=== PATIENT | female | born 1950 | race Caucasian/White ===

== ENCOUNTER 2019-03-18 23:02 | Inpatient (IN) ==
[2019-03-18 23:40] LABS: URINE SOURCE CLEAN CATCH
[2019-03-18 23:46] LABS: BILIRUBIN URINE NEGATIVE (NEGATIVE); BLOOD URINE SMALL (NEGATIVE); COLOR YELLOW; GLUCOSE URINE >1000 mg/dL (NEGATIVE); KETONE URINE 20 mg/dL (NEGATIVE); LEUKOCYTES URINE SMALL (NEGATIVE); NITRITE URINE POSITIVE (NEGATIVE); PH URINE 5.5; PROTEIN URINE 50 mg/dL (NEGATIVE); SP GRAVITY URINE 1.026; TURBIDITY URINE CLEAR (CLEAR); UROBILINOGEN URINE NORMAL (NORMAL)
[2019-03-18 23:47] LABS: UR EPITHELIAL CELLS <10 /HPF (<10); URINE BACTERIA 4+ /HPF; URINE RBC <10 /HPF (<10); URINE WBC TNTC /HPF (<10)
[2019-03-18] MEDS ORDERED: NS 1,000 ML IV ONE (23:59)
[2019-03-19] MEDS ORDERED: ZOFRAN IV ONE ×2 (00:03→00:06)
--- NOTE | 2019-03-19 00:06 | PROVIDER DOCUMENTATION ---
HPI-Female /OB/Breast - General Chief Complaint: Flank Pain Stated Complaint: VOMITING, STOMACH AND SIDE PAIN Time Seen by Provider: 03/18/19 23:32 - History of Present Illness-Female /OB Nature of Presenting Problem: 68 YOF PRESENTS WITH C/O L FLANK PAIN RADIATING TO THE LOWER LEFT QUADRANT AND SUPRAPUBIC THAT BEGAN ON WEDNESDAY. SHE HAS HAD N/V. DENIES SOB, CP, DIARRHEA. SHE HAS NOT CHECKED A TEMP AT HOME. Does patient report she is ?: No Location of complaint: reports: left flank Radiation: reports: LLQ, suprapubic Quality of Pain: reports: aching, sharp Severity in ED: reports: moderate Onset/Duration: reports: 24 hours ago Timing: reports: still present, getting worse Context/Activities at Onset: reports: none Vaginal Symptoms: reports: no symptoms Vaginal Bleeding Amount: None Urinary Symptoms: reports: low back pain Related Symptoms: reports: no symptoms Leakage of Fluid: none Sexual intercourse history: reports: Single Partner Contraception: reports: none Modifying Factors: improves with: nothing Associated Symptoms: reports: denies symptoms Similar Symptoms Previously?: No Recently seen or treated by another doctor?: No Review of Systems - Adult - REVIEW OF SYSTEMS - ADULT Constitutional: reports: no symptoms reported. denies: see HPI, chills, fever, fatique, night sweats, weight gain, weight loss, other Eyes: reports: no symptoms reported. denies: see HPI, discharge, dry eyes, decr eased vision, blurred vision, double vision, eye pain, redness, other Ears, Nose, Mouth & Throat: reports: no symptoms reported. denies: see HPI, ear discharge, ear pain, hearing loss, tinnitus, epistaxis, sinus problem, nose pain, loose teeth, mouth/dental pain, mouth swelling, hoarseness, throat pain, throat swelling, other Cardiovascular: reports: no symptoms reported. denies: see HPI, chest pain, edema, heart murmur, irregular heart rate, orthopnea, palpitations, poor circulation, PND, syncope, other Respiratory: reports: no symptoms reported. denies: see HPI, chronic cough, cough, dyspnea on exertion, excessive sputum production, hemoptysis, pleurisy, shortness of breath, wheezing, other Gastrointestinal: reports: abdominal pain, nausea, vomiting. denies: no symptoms reported, see HPI, hematemesis, constipation, diarrhea, difficulty swallowing, frequent heartburn, poor appetite, rectal bleeding, other Genitourinary: reports: see HPI, flank pain. denies: no symptoms reported, dysuria, discharge, frequency, frequent UTI's, hematuria, hesitency, incontinence, urinary retention, urgency, other Musculoskeletal: reports: no symptoms reported. denies: see HPI, bone pain, back pain, frequent leg cramps, joint pain, joint swelling, muscle aches, muscle weakness, neck pain, other Integumentary: reports: no symptoms reported. denies: see HPI, hives, hair loss, itching, mole changes, nail changes, rash, skin sores/ulcer, skin thickening, other Neurological: reports: no symptoms reported. denies: see HPI, ataxia, dizziness/vertigo, headache/migraines, loss of balance, numbness, paresthesia, seizure, slurred speech, syncope, tremors, other Psychiatric: reports: no symptoms reported. denies: see HPI, anxiety, anti- depressant use, alcohol/drug dependence, depression, emotional problems, insomnia, panic attacks, suicidal thoughts, other Endocrine: reports: no symptoms reported. denies: see HPI, change in skin pigment, excessive sweating, goiter, cold intolerance, heat intolerance, increased hunger, increased thirst, polyuria, other Hematologic/Lymphatic: reports: no symptoms reported. denies: see HPI, blood clots, easy bruising, low blood count, lymphedema, prolonged bleeding, swollen lymph nodes, transfusions, other Allergic/Immunologic: reports: no symptoms reported. denies: see HPI, allergic reactions, allergic rhinitis, asthma, eczema, food allergy, frequent infections, hay fever, hives, positive PPD, urticaria, other Past History - Adult - PAST MEDICAL HISTORY-ADULT Review of Records: reports: Nursing Assessment Review, Social history reviewed & non-contributory. Physical Exam-General - PHYSICAL EXAM-ADULT Initial Vital Signs Reviewed: Yes - CONSTITUTIONAL General Appearance: alert - EYES Eyes: PERRL/EOMI - HEAD, EARS, NOSE, MOUTH & THROAT HENMT: normocephalic/atraumatic, moist mucous membranes, normal ENT inspection - NECK Neck: non-tender, full range of motion, supple - RESPIRATORY Respiratory: chest non-tender, lungs clear, normal breath sounds, no pleuratic chest pain, no respiratory distress - CARDIOVASCULAR Cardiovascular: normal peripheral pulses, regular rate, rhythm - GASTROINTESTINAL (ABDOMEN) Abdominal Exam: normal bowel sounds, non tender, soft - LYMPHATIC Lymphatic: no adenopathy - MUSCULOSKELETAL Back Exam: CVA tenderness (L SIDE). negative: no CVA tenderness Extremity: normal range of motion, non-tender, normal gait - SKIN Integumentary: normal color, normal turgor, warm/dry - NEUROLOGIC Neurologic: grossly normal - PSYCHIATRIC Psych/Mental Status: normal mood/affect, oriented x 3 Progress - PLAN OF CARE/RESULTS Progress/Plan/Lab Results: Vital Signs - 8 hr 03/18/19 23:11 Temperature 99.0 F Pulse Rate 125 H Respiratory Rate 18 Blood Pressure 111/70 O2 Sat by Pulse Oximetry 94 L Laboratory Results - last 24 hr 03/18/19 23:35 Urine Source CLEAN CATCH Urine Color YELLOW Urine Turbidity CLEAR Urine pH 5.5 Ur Specific Solomon 1.026 Urine Protein 50 A Ur Glucose (Stick) >1000 A Ur Ketones (Stick) 20 A Urine Blood SMALL A Urine Nitrite POSITIVE A Urine Bilirubin NEGATIVE Urobilinogen Dipstick NORMAL Urine Leukocytes SMALL A Urine WBC (Auto) TNTC A Urine RBC (Auto) <10 U Epithel Cells (Auto) <10 Urine Bacteria (Auto) 4+ Orders Category Date Time Status Saline Loc NOW Care 03/18/19 23:38 Active CBC WITH ELECTRONIC DIFF [HEME] Stat Lab 03/19/19 00:03 Ordered COMPREHENSIVE METABOLIC PANEL [CHEM] Stat Lab 03/19/19 00:03 Ordered LIPASE [CHEM] Stat Lab 03/19/19 00:03 Ordered URINALYSIS W/POSS RFLX CULT [URINALYSIS] Stat Lab 03/18/19 23:35 Completed 0.9% Sodium Chloride Inj [Ns] 1,000 ml Med 03/18/19 23:59 Active IV 999 mls/hr Ondansetron [Zofran] Med 03/19/19 00:03 Discontinued 4 mg IV NOW ONE Ondansetron [Zofran] Med 03/19/19 00:06 Discontinued 4 mg IV NOW ONE Result Diagrams: 03/19/19 00:03 03/19/19 00:03 - CHANGE OF SHIFT REPORT (ED Provider) 1 Report Given and Care Transferred to:: DR RUSSELL Time of Transfer: 00:07 Items Pending: Labs (DISPO, ABX, IVF, NAUSEA CONTROL) Departure - Departure Date of Disposition Decision: 03/19/19 Time of Disposition Decision: 01:14 DIAGNOSIS: Pyelonephritis, WANDY (acute kidney injury) Disposition: ADMITTED INPATIENT 09 Certified Medical Emergency: Emergent Condition: Stable Referrals and Follow-Ups: Juan Fofana MD [Primary Care Provider] - - Critical Care Note This patient required my direct & personal management of CC.: No Attestation - Physician/ ELISHA Attestation Patient care was provided by Advanced Practice Provider:: No The physician spent face to face time with patient:: Yes Advanced Practice Provider documentation review:: Supervising physician onsite and consulted in the evaluation and care of this patient. The physician did have a face to face encounter with the patient.
[2019-03-19] MEDS ORDERED: TORADOL IV ONE ×2 (00:13→16:38)
[2019-03-19 00:18] LABS: BASO# 0.03 X1000 (0.0-0.2); BASO% 0.2 % (0.0-0.8); EOS# 0.04 X1000 (0.0-0.7); EOS% 0.2 % (0.0-10.0); HEMATOCRIT 38.8 % (37.0-47.0); HEMOGLOBIN 12.8 g/dL (12.0-16.0); IMM GRAN# 0.06 X1000 (0.0-0.04); IMM GRAN% 0.3 % (0.0-0.5); LYMPH% 5.1 % (20.5-51.1); MCH 27.8 PG (27-31); MCV 84.3 FL (81-99); MONO# 0.85 X1000 (0.11-0.59); MONO% 4.8 % (1.7-9.3); MPV 10.3 FL (7.4-10.4); NEUT# 15.76 X1000 (1.4-6.5); NEUT% 89.4 % (42.2-75.2); PLT 282 X1000 (130-400); RDW 13.8 % (11.5-14.5); WBC 17.64 X1000 (4.8-10.8)
[2019-03-19] MEDS ORDERED: ROCEPHIN 1 GM in NS 50 ML IV ONE (00:20)
[2019-03-19 00:36] LABS: ALB/GLOB RATIO 1.3; CALCIUM 9.9 mg/dL (8.8-10.2); CREATININE 1.5 mg/dL (0.5-0.9); POTASSIUM 3.8 mmol/L (3.5-5.1); TOTAL BILIRUBIN 0.51 mg/dL (0.20-1.00)
[2019-03-19] MEDS: NORCO-5 PO PRN ×2 (04:15→10:53)
[2019-03-19] MEDS: NS 1,000 ML IV SCH ×2 (04:15→15:56)
--- NOTE | 2019-03-19 04:26 | HISTORY AND PHYSICAL ---
PRIMARY CARE PHYSICIAN: Dr. Juan Fofana. CHIEF COMPLAINT: Left flank pain. HISTORY OF PRESENTING ILLNESS: A 68-year-old female with a history of diabetes mellitus type 2, hypothyroidism, GERD, hyperlipidemia and depression, who presented to emergency department with 2 days history of having worsening left flank pain. She states that she was having nausea, vomiting and did not feel well. The patient had come to the emergency department where she was evaluated and it was suspected possibly she had pyelonephritis clinically. Due to her presenting symptoms, she will require admission for further management. At time of my examination, patient denied any headache, fever, chills, chest pain, shortness of breath, hemoptysis or weight changes, but complained of left flank pain and nausea, vomiting. PAST MEDICAL HISTORY: Include diabetes mellitus type 2, hypothyroidism, GERD, hyperlipidemia and depression. PAST SURGICAL HISTORY: Right shoulder surgery, left knee surgery, right foot surgery, hysterectomy, back surgery, cholecystectomy. ALLERGIES: No known drug allergies. CURRENT MEDICATIONS: Insulin glargine 15 units subcutaneous at bedtime, metformin 1000 mg p.o. b.i.d., Lexapro 10 mg p.o. daily, fenofibrate 160 mg p.o. daily, levothyroxine 50 mcg p.o. daily, Singular 10 mg p.o. daily, pantoprazole 20 mg p.o. daily. SOCIAL HISTORY: No history of smoking, alcohol or illicit drug use. FAMILY HISTORY: Positive coronary artery disease in father. REVIEW OF SYSTEMS: Fourteen point review of systems as listed in HPI. Other systems negative. PHYSICAL EXAMINATION: GENERAL: Cooperative, friendly female. She is resting more comfortably now. VITAL SIGNS: Temperature 98.2 degrees, pulse 98, respiration 18, blood pressure 121/66. HEENT: Atraumatic, normocephalic. Extraocular movements intact. PERRLA. NECK: Supple. CHEST: Clear to auscultation. CARDIOVASCULAR: Regular rate and rhythm. ABDOMEN: Soft, positive bowel sounds. BACK: There is left flank tenderness. GENITOURINARY: No bladder distention. SKIN: Warm. NEUROLOGIC: Nonfocal. LABORATORIES AND STUDIES: WBC 17.64, hemoglobin 12.8, hematocrit 38.8, platelets 282,000. Sodium 135, potassium 3.8, chloride 97, CO2 is 18, BUN is 27, creatinine is 1.5, glucose 283. ASSESSMENT: This is a 68-year-old female with a history of diabetes mellitus type 2, hypothyroidism, gastroesophageal reflux disease and hyperlipidemia, who presented to the emergency department with several days history of having left flank pain. She was evaluated in the emergency department. Clinically, it seemed that she had pyelonephritis. Subsequently, she will require admission for further management. 1. Left flank pain, suspected pyelonephritis. 2. Urinary tract infection. 3. Acute kidney injury. 4. Diabetes mellitus type 2. PLAN: 1. We will admit patient to medical floor with telemetry. 2. We will check blood cultures and urine cultures. Start patient on IV antibiotics. 3. We will continue to monitor her renal function. Continue with IV fluid hydration. 4. We will monitor blood glucose and put patient on sliding scale insulin regimen. 5. Put patient on DVT prophylaxis with SCD. 6. We will continue to follow, and reassess and make further recommendation based on patient's clinical course. cc: Jayden Munoz MD
[2019-03-19] MEDS: PROTONIX PO SCH (06:20)
[2019-03-19] MEDS: SYNTHROID PO SCH (06:20)
[2019-03-19] MEDS: HUMULIN R SUBQ SCH ×4 (07:02→21:53)
[2019-03-19] MEDS: SINGULAIR PO SCH (10:53)
[2019-03-19] MEDS: LEXAPRO PO SCH (10:53)
[2019-03-19] MEDS: LOFIBRA PO SCH (10:53)
[2019-03-19] MEDS: ZOFRAN IV PRN (15:56)
--- NOTE | 2019-03-19 17:10 | PROGRESS NOTE ---
DATE: 03/19/2019 SUBJECTIVE: Patient has no major complaints. OBJECTIVE: Blood pressure 138/68, heart rate 110, respiratory rate 20, temperature 98.7 degrees, 95% on room air. The patient is having a lot of headache pain and pain in her side. Cardiovascular: Regular rate and rhythm. Pulmonary: Bilateral breath sounds. Clear to auscultation. GI: Soft, nontender, nondistended. Bowel sounds are positive. LABORATORY DATA: No big changes. PROBLEM LIST: Pyelonephritis at least presumably so we will continue antibiotics. I am going to do a stone search just because of the nature of her pain. It is kind of in her left lower quadrant and we will continue antibiotics and follow closely. Urine, blood cultures are pending. cc: Boni Peter MD
[2019-03-19] MEDS: MORPHINE IV PRN ×2 (17:41→20:48)
--- NOTE | 2019-03-19 19:20 | Diag Imaging Result Doc PS360 ---
EXAM: CT RENAL STONE SEARCH 03/19/2019 HISTORY: ashlee TECHNIQUE: This exam was performed using automated exposure control, adjustment of mA or kV according to patient size, and/or use of iterative reconstruction technique. COMMENT: There is bilateral lower lobe atelectasis worse on the left than the right. There bilateral pleural effusions, left more than right. The liver is markedly hypodense suggesting fatty change. The spleen and adrenal glands are not enlarged. There is some fullness in the right collecting system and there are several small stones none of which exceed 3 mm in size. There is marked hydronephrosis on the left with perinephric stranding. The left ureter is also markedly distended. There is a stone at the level of the sacroiliac joint in the ureter on the left measuring in excess of 8 mm in diameter. There is free fluid in the cul-de-sac. The urinary bladder is not distended. There is no evidence of bowel obstruction. There is no evidence of appendicitis. There has been previous cholecystectomy. There are postsurgical changes in the lower lumbar spine. No acute bony abnormalities are present. IMPRESSION: High-grade hydronephrosis on the left due to distal ureteral stone. Right nephrolithiasis. Mild right hydronephrosis. Hepatic steatosis. Bibasilar atelectasis and pleural effusions. Electronically signed by Ye Gomez 03/19/2019 7:17 PM
[2019-03-20] MEDS ORDERED: ROCEPHIN 1 GM in NS 50 ML IV SCH (01:00)
[2019-03-20] MEDS: NS 1,000 ML IV SCH ×2 (01:19→17:10)
[2019-03-20] MEDS: FIORICET PO PRN ×2 (01:30→20:54)
[2019-03-20] MEDS: PATIENT'S OWN MED SUBQ SCH ×2 (01:38→20:57)
[2019-03-20] MEDS: NORCO-5 PO PRN (04:57)
[2019-03-20] MEDS: PROTONIX PO SCH (06:32)
[2019-03-20] MEDS: SYNTHROID PO SCH (06:32)
[2019-03-20] MEDS: HUMULIN R SUBQ SCH ×3 (06:37→20:55)
[2019-03-20 06:44] LABS: CALCIUM 8.9 mg/dL (8.8-10.2); CREATININE 1.5 mg/dL (0.5-0.9); POTASSIUM 3.7 mmol/L (3.5-5.1)
[2019-03-20 06:48] LABS: BASO# 0.01 X1000 (0.0-0.2); BASO% 0.1 % (0.0-0.8); EOS# 0.23 X1000 (0.0-0.7); EOS% 2.6 % (0.0-10.0); HEMATOCRIT 30.8 % (37.0-47.0); IMM GRAN# 0.03 X1000 (0.0-0.04); IMM GRAN% 0.3 % (0.0-0.5); LYMPH# 0.87 X1000 (1.2-3.4); LYMPH% 9.7 % (20.5-51.1); MCH 27.9 PG (27-31); MCHC 32.5 g/dL (33-37); MCV 85.8 FL (81-99); MONO# 0.43 X1000 (0.11-0.59); MONO% 4.8 % (1.7-9.3); MPV 10.4 FL (7.4-10.4); NEUT# 7.42 X1000 (1.4-6.5); NEUT% 82.5 % (42.2-75.2); PLT 208 X1000 (130-400); RBC 3.59 XMIL (4.2-5.4); RDW 13.7 % (11.5-14.5); WBC 8.99 X1000 (4.8-10.8)
[2019-03-20] MEDS: MORPHINE IV PRN ×2 (09:20→15:27)
[2019-03-20] MEDS: LOFIBRA PO SCH (09:21)
[2019-03-20] MEDS: ALLEGRA PO SCH (09:21)
[2019-03-20] MEDS: LEXAPRO PO SCH (09:21)
[2019-03-20] MEDS: SINGULAIR PO SCH (09:23)
[2019-03-20] MEDS ORDERED: OFIRMEV 1000 MG/ISOTONIC SOLN 1,000 MG/100 ML BOTTLE IV PRN (16:23)
[2019-03-20] MEDS ORDERED: NS 1,000 ML IV SCH (16:45)
[2019-03-20] MEDS: DILAUDID IV PRN ×2 (17:10→20:55)
[2019-03-20] MEDS: ZOFRAN IV PRN ×2 (17:10→20:55)
[2019-03-20] MEDS: ROCEPHIN 1 GM in NS 50 ML IV SCH (17:23)
--- NOTE | 2019-03-20 19:18 | PROGRESS NOTE ---
DATE: 03/20/2019 SUBJECTIVE: Patient has no major complaints. She just does not feel well. OBJECTIVE: Vital Signs: Heart rate is 90s, respiratory rate 18, blood pressure 135/54, saturations 92% on room air. Cardiovascular: Regular rate and rhythm. Pulmonary: Bilateral breath sounds. Gastrointestinal: Abdomen had soft, nontender, nondistended. Bowel sounds are positive. LABORATORY DATA: White count is down to 8.9, hemoglobin and hematocrit 10 and 30, platelets 208,000. BUN and creatinine 24 and 1.5. Sugar 195. Micro gram-negative rods in the urine. PROBLEM LIST: 1. Impacted stone in her left ureter with hydronephrosis. She will need JJ stent placement. I have discussed with Dr. Jo. At this point, it will most likely be done tomorrow and he will come and evaluate her in the meantime. We will continue IV fluids, pain control. 2. Pyelonephritis, likely secondary to impacted stone. We will continue empiric antibiotics. I am going to bump up her Rocephin to q 12 just because I want to make sure she is adequately covered. It is most likely a Escherichia coli type back bacteria. 3. Diabetes. We will continue to monitor. Continue sliding scale and follow closely. We will also check an A1c. DISPOSITION: Pending her clinical status. Hopefully, once we can get stent placed, she will start to improve and go home in the next 24 hours pending her clinical status. cc: Boni Peter MD
[2019-03-21] MEDS: NS 1,000 ML IV SCH ×3 (00:43→19:31)
[2019-03-21] MEDS: ZOFRAN IV PRN ×3 (00:44→09:53)
[2019-03-21] MEDS: DILAUDID IV PRN ×5 (00:44→20:40)
[2019-03-21] MEDS: ROCEPHIN 1 GM in NS 50 ML IV SCH ×2 (05:19→17:27)
[2019-03-21] MEDS: SYNTHROID PO SCH ×2 (05:19→06:19)
[2019-03-21] MEDS: PROTONIX PO SCH ×2 (05:20→06:19)
[2019-03-21 06:05] LABS: BASO# 0.02 X1000 (0.0-0.2); BASO% 0.2 % (0.0-0.8); EOS# 0.27 X1000 (0.0-0.7); EOS% 3.2 % (0.0-10.0); HEMATOCRIT 32.4 % (37.0-47.0); HEMOGLOBIN 10.7 g/dL (12.0-16.0); IMM GRAN% 1.2 % (0.0-0.5); LYMPH# 0.87 X1000 (1.2-3.4); LYMPH% 10.3 % (20.5-51.1); MCH 27.9 PG (27-31); MCV 84.6 FL (81-99); MONO# 0.79 X1000 (0.11-0.59); MONO% 9.4 % (1.7-9.3); MPV 10.5 FL (7.4-10.4); NEUT# 6.38 X1000 (1.4-6.5); NEUT% 75.7 % (42.2-75.2); PLT 226 X1000 (130-400); RBC 3.83 XMIL (4.2-5.4); RDW 13.6 % (11.5-14.5); WBC 8.43 X1000 (4.8-10.8)
[2019-03-21 06:11] LABS: CREATININE 1.4 mg/dL (0.5-0.9); POTASSIUM 3.6 mmol/L (3.5-5.1)
[2019-03-21 06:12] LABS: CALCIUM 9.3 mg/dL (8.8-10.2)
[2019-03-21 06:29] LABS: HEMOGLOBIN A1C 9.5 % (4.8-6.0)
[2019-03-21] MEDS: HUMULIN R SUBQ SCH ×5 (08:00→20:40)
--- NOTE | 2019-03-21 08:24 | CONSULTATION ---
DATE OF CONSULTATION: 03/20/2019 CONSULTING PHYSICIAN: Dr. Boni Peter with the hospitalist service. REASON FOR CONSULTATION: Consultation for obstructing left ureteral stone, hydronephrosis, pyelonephritis. HISTORY OF PRESENT ILLNESS: A 68-year-old female without previous history of urolithiasis who reports developing a 1-week history of back pain. Three days ago, the pain started radiating into her left flank and left lower abdomen. She developed associated nausea and vomiting. As the pain progressed in severity, she presented to the emergency room. There, she was found to have leukocytosis. She underwent CT of abdomen and pelvis renal stone search on 03/19/2019 which revealed several right renal stones and an 8 mm left distal ureteral stone with significant hydronephrosis. The patient was admitted, hydrated, and given pain medications, antiemetics, and antibiotics. She continues to have significant pain. PAST MEDICAL HISTORY: Diabetes mellitus, hyperlipidemia, hypothyroidism, GERD, depression. PAST SURGICAL HISTORY: Cholecystectomy, hysterectomy, back surgery, shoulder surgery, knee surgery, and foot surgery. ALLERGIES: No known drug allergies. HOME MEDICATIONS: Levothyroxine, pantoprazole, Singulair, fenofibrate, Lexapro, metformin, insulin glargine. SOCIAL HISTORY: She denies tobacco, alcohol, or illicit drug use. FAMILY HISTORY: Negative for malignancies. Negative for urolithiasis. Positive for coronary artery disease. REVIEW OF SYSTEMS: Reviewed and 12 systems negative except as in the HPI. PHYSICAL EXAMINATION: T 100.8 degrees, P 97, BP 135/54. General: Pleasant female in no acute distress. HEENT: Normocephalic, atraumatic. Cardiovascular: Regular rhythm. Pulmonary: Bilateral breath sounds. Abdomen: Protuberant, nontender to palpation. No involuntary guarding. No peritoneal signs. Back: Positive for left CVA tenderness. : Bladder is nontender to palpation. Lymphatic: No groin lymphadenopathy. No axillary lymphadenopathy. Dermatologic: No obvious skin rashes. Neurologic: Alert and oriented x3. Psychiatric: Appropriate mood and affect. PERTINENT LABORATORY DATA: White cell count is 9000 down from 17,000, hematocrit is 31. Creatinine is 1.5. PERTINENT IMAGING: CT abdomen and pelvis renal stone search on 03/19/2019 as per HPI. ASSESSMENT: A 68-year-old female with left obstructing distal ureteral stone with significant associated hydroureteronephrosis, severe left flank pain, nausea, and vomiting. I have discussed with the patient that given her stone size, she is unlikely to pass it. We discussed that she would benefit from cystoscopy with left ureteroscopy, laser lithotripsy, stone basket extraction, placement of left ureteral stent. We discussed the risks of the procedure including, but not limited to, bleeding, infection, injury to the bladder, injury to the ureter, inability to retrieve the stone, long-term complications such as ureteral stricture, and the need for a ureteral stent afterwards. She voiced understanding and wants to proceed. PLAN: 1. NPO after midnight. 2. To operating room on 03/21/2019 for cystoscopy, left ureteroscopy, laser lithotripsy, stone basket extraction, and possible left ureteral stent. Thank you for the consultation. cc: Greyson Jo MD
[2019-03-21] MEDS: SINGULAIR PO SCH (09:00)
[2019-03-21] MEDS: LEXAPRO PO SCH (09:01)
[2019-03-21] MEDS: LOFIBRA PO SCH (09:01)
[2019-03-21] MEDS: ALLEGRA PO SCH (09:01)
[2019-03-21] MEDS ORDERED: DIPRIVAN 1% ONE (11:57)
[2019-03-21] MEDS ORDERED: DECADRON ONE (11:58)
[2019-03-21] MEDS ORDERED: ZOFRAN ONE (11:58)
[2019-03-21] MEDS ORDERED: XYLOCAINE-MPF 2% ONE (11:58)
[2019-03-21] MEDS ORDERED: FENTANYL ONE (12:44)
[2019-03-21] MEDS ORDERED: INSULIN PEN NEEDLES ONE (14:03)
--- NOTE | 2019-03-21 14:13 | Diag Imaging Result Doc PS360 ---
FLUROSCOPY CYSTO - 03/21/2019 INDICATION: LT URETERAL STONE, UTI, HEMATURIA, LT LASER STONE BASKET, STENT TECHNIQUE: The exam was performed by the patient's urologist. Total fluoroscopy time was 10 seconds. Nine images were obtained. COMPARISON: CT from 03/19/2019 FINDINGS: A wire and instrument were placed in the left ureter. The wire was advanced to the renal collecting system. A left nephroureteral stent was placed in good position. IMPRESSION: No complication. Electronically signed by Feliberto Palmer 03/21/2019 2:10 PM
[2019-03-21] MEDS ORDERED: UROGESIC-BLUE PO PRN (15:14)
--- NOTE | 2019-03-21 18:29 | PROGRESS NOTE ---
DATE: 03/21/2019 SUBJECTIVE: The patient has no major complaints. She feels a lot better. She looks a lot better. OBJECTIVE: vital signs: Blood pressure is 138/68, heart rate 91, respiratory rate 18, temperature was 98.3 degrees. Cardiovascular: Regular rate and rhythm. Pulmonary: Bilateral breath sounds. Clear to auscultation. Gastrointestinal: Soft, nontender, nondistended. Bowel sounds are positive. Extremities: No clubbing or cyanosis. LABORATORY DATA: White count is down to 8, hemoglobin and hematocrit 10 and 32, platelets 226,000. Creatinine 1.4. A1c is 9.5. PROBLEM LIST: 1. Impacted stone with hydronephrosis and ureterolithiasis. Dr. Jo. I greatly appreciate his intervention. She has had a stent now and is doing a lot better and we will continue to follow. 2. Pyelonephritis, left kidney. Likely from urinary obstruction. We will continue antibiotics. Positive culture for Klebsiella pneumoniae, but it is sensitive to cefazolin which allows us to use Keflex as an outpatient. 3. Diabetes. Continue sliding scale insulin. Check A1c which is elevated. Blood sugars are overall stable. We will continue her regular medications, but right now she is not on anything. She is supposed to be on metformin and she is supposed to be on glargine and exenatide, so we may be able to start that back. I am not quite sure why that was not started back. We need to start that back. We have ordered it. I am going to start her Lantus. She is using her own medication, so will see how her numbers look. Possible discharge tomorrow I think if she is afebrile for 24 hours. She had a little bit of temperature yesterday. cc: Boni Peter MD
[2019-03-21] MEDS: PERIDEX MT SCH (20:39)
[2019-03-21] MEDS: PATIENT'S OWN MED SUBQ SCH (20:41)
[2019-03-22] MEDS: NORCO-5 PO PRN ×3 (00:31→14:22)
[2019-03-22] MEDS: NS 1,000 ML IV SCH ×3 (04:30→18:23)
[2019-03-22] MEDS: PROTONIX PO SCH (06:07)
[2019-03-22] MEDS: ROCEPHIN 1 GM in NS 50 ML IV SCH ×2 (06:07→17:17)
[2019-03-22] MEDS: SYNTHROID PO SCH (06:08)
[2019-03-22 06:30] LABS: BASO# 0.02 X1000 (0.0-0.2); BASO% 0.2 % (0.0-0.8); EOS# 0.12 X1000 (0.0-0.7); EOS% 1.4 % (0.0-10.0); HEMATOCRIT 30.9 % (37.0-47.0); HEMOGLOBIN 10.2 g/dL (12.0-16.0); IMM GRAN# 0.28 X1000 (0.0-0.04); IMM GRAN% 3.4 % (0.0-0.5); LYMPH# 1.32 X1000 (1.2-3.4); LYMPH% 15.9 % (20.5-51.1); MCH 27.6 PG (27-31); MCV 83.7 FL (81-99); MONO# 0.76 X1000 (0.11-0.59); MONO% 9.1 % (1.7-9.3); MPV 10.3 FL (7.4-10.4); NEUT# 5.82 X1000 (1.4-6.5); PLT 256 X1000 (130-400); RBC 3.69 XMIL (4.2-5.4); RDW 13.8 % (11.5-14.5); WBC 8.32 X1000 (4.8-10.8)
[2019-03-22] MEDS: HUMULIN R SUBQ SCH ×3 (06:38→17:17)
[2019-03-22 06:49] LABS: CALCIUM 9.4 mg/dL (8.8-10.2); CREATININE 1.2 mg/dL (0.5-0.9); POTASSIUM 3.2 mmol/L (3.5-5.1)
--- NOTE | 2019-03-22 10:07 | PROGRESS NOTE ---
DATE: 03/22/2019 SUBJECTIVE: Ms. Palma states that she is feeling much better in terms of pain. Her nausea has resolved. She denied any fevers overnight. She does report diarrhea, which she is attributing to the antibiotic. PHYSICAL EXAMINATION: T 97.8 degrees, P 77, BP 127/60. Her urine output was recorded in the amount of 2450 mL. General: No acute distress. HEENT: Normocephalic, atraumatic. Abdomen: Nontender, nondistended. : Bladder nontender by palpation. PERTINENT LABORATORY DATA: White cell count is 8000, creatinine is 1.2. Her urine culture grew Klebsiella pneumonia which is sensitive to multiple oral antibiotics. ASSESSMENT: A 68-year-old female with diabetes mellitus and obstructing left ureteral stone as well as nonobstructing right renal stones and pyelonephritis who underwent left ureteroscopy with laser lithotripsy, stone basket extraction, and a stent yesterday. This morning, she is much improved. Her creatinine is improved as well. We have her final urine culture. I have explained to the patient that from the urologic standpoint, she is cleared. I have advised her to remove her stent on 03/24/2019. Her stone was sent off for analysis and I plan on seeing her in 4 weeks to review stone analysis. Given the fact that she is prone to yeast infections, I will defer to Dr. Peter for the prescriptions but I have told the patient she may benefit from Diflucan for 3 days. I have also advised her to take Pyridium 100 mg three times a day which she can get over- the-counter for spasms related to the stent. PLAN: 1. Okay to discharge from the urologic standpoint. 2. She was instructed to remove the stent on 03/24/2019. 3. She will use Pyridium 100 mg t.i.d. p.r.n. for spasms. 4. I plan on seeing her in 4 weeks to review stone analysis, or sooner if she has a problem. cc: Greyson Jo MD
[2019-03-22] MEDS: SINGULAIR PO SCH (11:10)
[2019-03-22] MEDS: LOFIBRA PO SCH (11:10)
[2019-03-22] MEDS: LEXAPRO PO SCH (11:10)
[2019-03-22] MEDS: ALLEGRA PO SCH (11:10)
[2019-03-22] MEDS: PERIDEX MT SCH (11:11)
[2019-03-22] MEDS ORDERED: KLOR-CON PO ONE (17:52)
[2019-03-22] MEDS ORDERED: IMODIUM PO PRN (17:54)
--- NOTE | 2019-03-22 18:59 | PROGRESS NOTE ---
DATE: 03/22/2019 SUBJECTIVE: Patient still feels weak. She is having trouble getting up and down to bed and out of bed, and she has developed some diarrhea overnight. OBJECTIVE: Vital Signs: Blood pressure is 140/67, heart rate 83, respiratory 16, temperature 98.2. No fever overnight. Cardiovascular: Regular rate and rhythm. Pulmonary: Bilateral breath sounds, clear to auscultation. GI: Soft, nontender, nondistended. Bowel sounds are positive. LABORATORY DATA: Her white count has come down. She is down to 8. Hemoglobin and hematocrit 10 and 33, platelets 256. Potassium 3.2, creatinine 1.2. PROBLEM LIST: 1. Pyelonephritis associated with impacted ureteral stone. She seems to be doing okay from that standpoint. We will continue antibiotics and follow. 2. Ureterolithiasis with hydronephrosis. Dr. Jo has placed a stent, and she will be set up as an outpatient to remove the stent in a couple weeks. Continue to follow. 3. Acute kidney injury. Seems to be improved. We will continue treatment and follow. She is having some diarrhea. We will add Lactinex and Imodium and follow closely. Anticipate hopefully we can get her home tomorrow. cc: Boni Peter MD
[2019-03-23] MEDS: PATIENT'S OWN MED SUBQ SCH (00:31)
[2019-03-23] MEDS: HUMULIN R SUBQ SCH ×5 (00:31→22:38)
[2019-03-23] MEDS: NS 1,000 ML IV SCH ×2 (00:33→07:32)
[2019-03-23] MEDS: PERIDEX MT SCH ×3 (00:33→22:37)
[2019-03-23] MEDS: NORCO-5 PO PRN ×2 (00:44→15:42)
[2019-03-23] MEDS: SYNTHROID PO SCH (06:00)
[2019-03-23] MEDS: PROTONIX PO SCH (06:00)
[2019-03-23 06:25] LABS: BASO# 0.07 X1000 (0.0-0.2); BASO% 0.8 % (0.0-0.8); EOS# 0.36 X1000 (0.0-0.7); EOS% 4.1 % (0.0-10.0); HEMATOCRIT 33.4 % (37.0-47.0); HEMOGLOBIN 11.5 g/dL (12.0-16.0); IMM GRAN# 0.84 X1000 (0.0-0.04); IMM GRAN% 9.6 % (0.0-0.5); LYMPH# 1.98 X1000 (1.2-3.4); LYMPH% 22.6 % (20.5-51.1); MCH 27.9 PG (27-31); MCHC 34.4 g/dL (33-37); MCV 81.1 FL (81-99); MONO# 0.93 X1000 (0.11-0.59); MONO% 10.6 % (1.7-9.3); MPV 10.1 FL (7.4-10.4); NEUT% 52.3 % (42.2-75.2); PLT 330 X1000 (130-400); RBC 4.12 XMIL (4.2-5.4); RDW 13.7 % (11.5-14.5); WBC 8.78 X1000 (4.8-10.8)
[2019-03-23 06:50] LABS: CALCIUM 9.3 mg/dL (8.8-10.2); CREATININE 1.1 mg/dL (0.5-0.9); POTASSIUM 2.6 mmol/L (3.5-5.1)
[2019-03-23 07:07] LABS: LYMPHS 20 % (21-51); SEGS 78 % (42-75)
[2019-03-23] MEDS ORDERED: KLOR-CON PO ONE ×2 (08:37→18:00)
[2019-03-23] MEDS: LEXAPRO PO SCH (10:02)
[2019-03-23] MEDS: ALLEGRA PO SCH (10:02)
[2019-03-23] MEDS: SINGULAIR PO SCH (10:03)
[2019-03-23] MEDS: ROCEPHIN 1 GM in NS 50 ML IV SCH (10:04)
[2019-03-23] MEDS: LACTINEX PO SCH ×3 (10:04→16:42)
[2019-03-23] MEDS: LOFIBRA PO SCH (10:04)
[2019-03-23] MEDS: DILAUDID IV PRN ×2 (10:21→22:31)
[2019-03-23] MEDS: POTASSIUM CHLORIDE 20 MEQ/SWI 20 MEQ/100 ML IVPB IV SCH ×2 (11:02→13:52)
[2019-03-23] MEDS ORDERED: NS 1,000 ML IV SCH (17:24)
[2019-03-23] MEDS ORDERED: AMBIEN PO PRN (17:24)
[2019-03-23] MEDS ORDERED: DIFLUCAN PO ONE (17:26)
[2019-03-24] MEDS: DILAUDID IV PRN ×2 (02:35→06:03)
[2019-03-24] MEDS: PROTONIX PO SCH (06:04)
[2019-03-24] MEDS: SYNTHROID PO SCH (06:04)
[2019-03-24 06:41] LABS: CALCIUM 9.6 mg/dL (8.8-10.2); MAGNESIUM 1.4 mg/dL (1.5-2.7); POTASSIUM 3.6 mmol/L (3.5-5.1)
[2019-03-24 06:42] LABS: BASO# 0.08 X1000 (0.0-0.2); BASO% 0.8 % (0.0-0.8); EOS# 0.38 X1000 (0.0-0.7); EOS% 3.8 % (0.0-10.0); HEMATOCRIT 36.2 % (37.0-47.0); HEMOGLOBIN 12.1 g/dL (12.0-16.0); LYMPH# 2.64 X1000 (1.2-3.4); LYMPH% 26.4 % (20.5-51.1); MCH 27.4 PG (27-31); MCHC 33.4 g/dL (33-37); MCV 82.1 FL (81-99); MONO# 0.96 X1000 (0.11-0.59); MONO% 9.6 % (1.7-9.3); NEUT# 4.74 X1000 (1.4-6.5); NEUT% 47.4 % (42.2-75.2); PLT 377 X1000 (130-400); RBC 4.41 XMIL (4.2-5.4); RDW 14.1 % (11.5-14.5)
[2019-03-24] MEDS: HUMULIN R SUBQ SCH ×2 (07:00→11:28)
[2019-03-24] MEDS: ROCEPHIN 1 GM in NS 50 ML IV SCH (09:30)
[2019-03-24] MEDS: LEXAPRO PO SCH (09:30)
[2019-03-24] MEDS: SINGULAIR PO SCH (09:31)
[2019-03-24] MEDS: LACTINEX PO SCH (09:31)
[2019-03-24] MEDS: PERIDEX MT SCH (09:31)
[2019-03-24] MEDS: ALLEGRA PO SCH (09:31)
[2019-03-24] MEDS ORDERED: MAGNESIUM SULFATE 2 GM/S.W.I. 2 GM/50 ML IVPB IV ONE (09:40)
[2019-03-24] MEDS: LOFIBRA PO SCH (10:17)
[2019-03-24 11:26] VITALS: BP 113/68
[2019-03-24] MEDS: NORCO-5 PO PRN (11:28)
--- NOTE | 2019-03-24 14:37 | OPERATIVE NOTE ---
PROCEDURE DATE: 03/21/2019 SURGEON: Dr. Greyson Jo. PREOPERATIVE DIAGNOSIS: Left ureteral stone, hydronephrosis, flank pain, UTI with pyelonephritis. POSTOPERATIVE DIAGNOSIS: Left ureteral stone, hydronephrosis, flank pain, UTI with pyelonephritis. PROCEDURES: Cystoscopy, left ureteroscopy, laser lithotripsy, stone basket extraction, and placement of 6-Austrian-22 cm ureteral stent. INDICATIONS: A 68-year-old female without previous history of urolithiasis who developed flank pain followed by nausea, vomiting and chills. She was admitted with pyelonephritis, and underwent imaging with CT scan on 03/19/2019 revealing 8 mm left distal ureteral stone with significant hydroureteronephrosis as well as a right nonobstructing renal stones up to 3 mm in size. She presents for definitive intervention for left ureteral stone. FINDINGS: Significant mucosal edema with a fairly impacted stone. The stone fragments were sent off for analysis. DESCRIPTION OF PROCEDURE: After obtaining informed consent, patient brought to the operating room. Perioperative antibiotics and laryngeal mask anesthesia were administered. She was placed in lithotomy position, prepped and draped in sterile fashion. A 21-Austrian rigid cystoscope was used to gain access to the urethra and the bladder, which was then examined in a systematic fashion. She had no evidence of mucosal lesions, excessive trabeculations, diverticula, or bladder stones noted. Attention was turned to the left ureteral orifice which was cannulated with PTFE wire. We met resistance approximately 4 to 5 cm after introducing the wire, but eventually the wire was able to bypass the fluoroscopically visible stone, and be advanced to the level of the left renal pelvis. I then introduced rigid ureteroscope alongside of the wire. There was quite a bit of mucosal edema, and the stone was seen. It appeared to be fairly large and oblong orientation. A 0 Nitinol basket was used to secure the stone. A 365 micron Holmium laser fiber was used with energy settings of 10 hertz and 1 joule to break the stone up into smaller fragments. Those were then retrieved. Some of the fragments were sent off for analysis. Repeat ureteroscopy to the level of proximal ureter showed no evidence of sizable residual stone fragments. No evidence of ureteral injury. Given the significant mucosal edema, we elected to place the ureteral stent. In a standard fashion, 6-Austrian, 22 cm stent was placed over the wire via the cystoscope with the proximal coil position confirmed fluoroscopically, and distal coil directly visualized. The string was left attached to the stent. Her bladder was emptied, cystoscope was removed. She was extubated, and taken to PACU for further recovery. ESTIMATED BLOOD LOSS: 0 mL. COMPLICATIONS: None. SPECIMENS: Ureteral stone fragments which were sent off for analysis. Drains: 6-Austrian - 22 cm stent. DISPOSITION: To PACU and subsequently floor for observation and continuation of antibiotics. cc: Greyson Jo MD
--- NOTE | 2019-03-24 18:12 | PROGRESS NOTE ---
DATE: 03/24/2019 SUBJECTIVE: Patient feels better. No further diarrhea. OBJECTIVE: Blood pressure 117/55, heart rate 96, respiratory rate 18, temperature 98.3 degrees, 98% on room air.Cardiovascular: Regular rate and rhythm. Pulmonary: Bilateral breath sounds, clear to auscultation. Gastrointestinal: Soft, nontender, nondistended. Bowel sounds are positive. LABORATORY DATA: White count is 8, hemoglobin and hematocrit 11 and 33, platelets 330,000. Potassium is decreased to 2.6 though, despite supplementation. PROBLEM LIST: 1. Pyelonephritis, Klebsiella, urine culture positive. She is on Rocephin. We will continue treatment and follow. 2. Ureterolithiasis with impaction, hydronephrosis. She is status post JJ stent. Dr. Jo is following, appreciate his assistance. 3. Acute kidney injury, that has since resolved. 4. Hypokalemia. We will continue to supplement and follow. Anticipate if she stabilizes tomorrow, we should be able to discharge her in the morning. cc: Boni Peter MD
--- NOTE | 2019-03-25 12:54 | DISCHARGE SUMMARY ---
ADMISSION DATE: 03/18/2019 DISCHARGE DATE: 03/24/2019 DISCHARGE DIAGNOSES: 1. Pyelonephritis with positive Klebsiella urinary tract infection, pneumonia. 2. Impacted stone with hydronephrosis and hydroureter on the left side. 3. Acute kidney injury. ADMISSION DIAGNOSIS: Pyelonephritis. PROCEDURES: Cystoscopy with laser lithotripsy and JJ stent placement per Dr. Jo. CONSULTATIONS: Dr. Jo, Urology. Briefly this is a 68-year-old female admitted on the . She was placed on IV antibiotics, fluids. We do the CT later that day, that afternoon that evening that showed a high-grade hydronephrosis on the left and a distal ureteral stone, some mild right hydronephrosis. Dr. Jo was consulted and she underwent treatment on the with JJ stent placement, stone extraction. She clinically improved with fluids. She did have some hypokalemia and hypomagnesemia during her course which prompted improvement in treatment. [place] [address] and was decreased. Her creatinine stabilized with hydration down to a level of 1.0 prior to discharge. Her urine culture grew out Klebsiella pneumoniae that was sensitive to everything except ampicillin and Unasyn. DISCHARGE CONDITION: Stable. DISCHARGE MEDICATIONS: 1. Glargine 15 daily. 2. Fenofibrate 160 daily. 3. Fexofenadine 60 daily. 4. Klor-Con 20 daily,. 5. Lexapro 10 daily. 6. Metformin 1 g b.i.d. 7. Protonix 20 daily. 8. Singulair 10 daily. 9. Synthroid 50 daily. 10. Culturelle b.i.d. 11. Keflex 500 t.i.d. for 10 days. 12. Lamesa 7.5 q.6 p.r.n. pain. She is to follow up with Dr. Jo have been in 2 to 4 weeks for stent removal. Follow up with her PCP in about a week just to make sure her kidneys are doing okay. Avoid NSAIDs. Stay well hydrated. 35 minute discharge. cc: MD Juan Cuello MD Sergey S. Ananyev, MD
== END 2019-03-24 13:15 | disposition home or self-care (01) | DRG 854 ==
LOC: ED 23:02 → SUATTDRO 03-19 02:14 → 4N 03-19 02:14
PROVIDERS: ATTEND Internal Medicine